=== PATIENT | female | born 1955 | race African-American/Black ===

== ENCOUNTER → 2020-09-15 12:25 | Outpatient (CLI) | payer OTHER, SELFPAY ==
--- NOTE | ~2020-09-15 | DEXA_ITS ---
Bone Density Report Name: Inessa Duque Age: 65 Sex: Female Ethnicity: White Date of : 1955 Indication: postmenopausal; screening for osteoporosis; height loss; Referring Provider: Tonya Rios Study: Bone densitometry was performed. Exam Date: September 15, 2020 Accession number: [id number] Bone Density: Region BMD T-score Z-score Classification AP Spine (L1-L4) 0.834 -1.9 -0.2 Osteopenia Femoral Neck (Left) 0.745 -0.9 0.5 Normal Total Hip (Left) 0.869 -0.6 0.6 Normal Femoral Neck (Right) 0.722 -1.1 0.3 Osteopenia Total Hip (Right) 0.851 -0.7 0.4 Normal Total Hip Mean 0.860 -0.7 0.5 Normal World Health Organization criteria for BMD impression classify patients as: Normal (T-score at or above -1.0), Osteopenia (T-score between -1.0 and -2.5), or Osteoporosis (T-score at or below -2.5). 10-year Fracture Risk(1): Major Osteoporotic Fracture 7.9% Hip Fracture 0.6% Reported Risk Factors: [place] (), Neck BMD=0.722, BMI=28.3 (1) FRAX(R) Version 3.08. Fracture probability calculated for an untreated patient. Fracture probability may be lower if the patient has received treatment. Clinical Information Provided by Patient: Patient maximum height was 64.75 Menopause Age: 56 Drinks caffeinated beverages Onset of menses at age 14 Number of children 2 Impression: The patient has low bone mass, based on the Total Spine T-score. The patient has an estimated ten-year risk of hip fracture of 0.6% and an estimated ten-year risk of major fracture of 7.9%, based on the WHO FRAX algorithm. Discussion: BONE DENSITY IS LOW AT ONE OR MORE SKELETAL SITES. This patient's lowest T-score is low at one or more skeletal sites. It meets the World Health Organization's (WHO) criteria for ?low bone mass? (T-score between -1.0 and -2.5). The patient's 10-year risk of fracture as calculated by FRAX is less than the threshold where pharmacological therapy is recommended by the National Osteoporosis Foundation (NOF). However, all treatment decisions require clinical judgment and consideration of individual patient factors, including patient preferences, comorbidities, previous drug use, risk factors not captured in the FRAX model (e.g., frailty, falls, vitamin D deficiency, increased bone turnover, interval significant decline in bone density) and possible under or overestimation of fracture risk by FRAX. The patient should follow a healthful lifestyle (good nutrition with adequate calcium and vitamin D, and appropriate weight-bearing exercise). Follow-Up: Consider repeating this study in 2 to 3 years to reassess this patient's status, or sooner if there is some new clinical indication. Reported by: TRUONG on 09/15/2020 12:48:00 PM. Rodríguez, jhon
== END ==
PROVIDERS: PCP Family Medicine; Visit Provider Student in an Organized Health Care Education/Training Program
DX: Z78.0 Asymptomatic menopausal state (principal); M85.851 Other specified disorders of bone density and structure, right thigh; M85.88 Other specified disorders of bone density and structure, other site
CPT/HCPCS: 77080

== ENCOUNTER → 2020-10-08 10:20 | Outpatient (CLI) | payer OTHER, SELFPAY ==
--- NOTE | ~2020-10-08 | MR_ITS ---
EXAMINATION: MR lumbar spine wo con DATE: 10/08/2020 10:56 INDICATION: Low back pain. TECHNIQUE: Magnetic resonance imaging (MRI) of the lumbar spine was performed without intravenous con trast. Sequences included sagittal T2-weighted FSE, sagittal T2-weighted FS FSE, sagittal T1-weighted FSE, and axial T2-weighted FSE. COMPARISON: None FINDINGS: There is 7 degrees dextrocurvature of lumbar spine. Vertebral body heights are normal. Ther e is mildly decreased disc height at L4-L5 and severely decreased disc height at L5-S1. The distal sp inal cord signal intensity is normal. The conus medullaris is at L1. The following disc levels are sp ecifically discussed: L1-L2: The disc is bulging. There is no facet joint osteoarthritis. There is no neural foraminal sten osis. There is mild central canal stenosis. L2-L3: There is a right foraminal protrusion. There is moderate bilateral facet joint osteoarthritis. There is mild right neural foraminal stenosis. There is no central canal stenosis. L3-L4: The disc does not extend beyond the endplate margin. There is severe bilateral facet joint ost eoarthritis. There is no neural foraminal stenosis. There is no central canal stenosis. L4-L5: There is a left central extrusion with mass effect on left L5 nerve root in left lateral reces s. There is moderate and severe left facet joint osteoarthritis. There is mild left neural foraminal stenosis. There is moderate central canal stenosis. L5-S1: The disc is bulging. There is moderate right and mild left facet joint osteoarthritis. There i s mild bilateral neural foraminal stenosis. There is mild central canal stenosis. IMPRESSION: 1. Severe lower lumbar spondylosis. Of note, a large extrusion at L4-L5 exerts mass effect on left L5 nerve root. Reviewed, dictated and finalized at location A.
== END ==
PROVIDERS: PCP Family Medicine; Visit Provider Family Medicine
DX: M47.817 Spondylosis without myelopathy or radiculopathy, lumbosacral region (principal); M48.07 Spinal stenosis, lumbosacral region
CPT/HCPCS: 72148

== ENCOUNTER → 2020-11-02 12:32 | Outpatient (CLI) | payer OTHER, SELFPAY ==
--- NOTE | ~2020-11-02 | MM_ITS ---
EXAMINATION: MM screening juanita BI w reena HISTORY: Screening mammogram, family history of breast cancer in her sister. TECHNIQUE: Craniocaudal and mediolateral oblique 3-D tomosynthesis images were obtained and synthetic 2-D images were generated. CAD analysis was submitted and interpreted. COMPARISON: No prior mammogram is available for comparison at this institution. BREAST PARENCHYMAL COMPOSITION: There are scattered areas of fibroglandular density. FINDINGS: Scattered benign-appearing calcifications are present. There is no evidence of suspicious m ass, calcification, or architectural distortion to suggest malignancy in either breast. IMPRESSION: 1. No mammographic evidence of malignancy. 2. Recommend routine screening mammography in one year. BI-RADS Category 2: Benign finding(s). Reviewed, dictated and finalized at location A.
== END ==
PROVIDERS: Visit Provider Student in an Organized Health Care Education/Training Program
DX: Z12.31 Encounter for screening mammogram for malignant neoplasm of breast (principal)
CPT/HCPCS: 77063; 77067

== ENCOUNTER → 2021-02-23 10:45 | Outpatient (CLI) | payer OTHER, SELFPAY ==
--- NOTE | ~2021-02-23 | US_ITS ---
EXAMINATION: US pelvic complete w TV DATE: 02/23/2021 11:13 INDICATION: Postmenopausal bleeding TECHNIQUE: Multiple transabdominal and endovaginal sonographic images of the pelvis were obtained. COMPARISON: None. FINDINGS: The uterus measures 6.8 x 3.2 x 4.5 cm. A 1.5 x 1.6 x 1.4 cm hypoechoic area of the posteri or uterine body has the appearance of a subserosal fibroid. The endometrial complex measures 4 mm. Th e ovaries are not visualized however no adnexal abnormality is seen. There is no free fluid in the pe lvis. IMPRESSION: 1. No sonographic correlate for the patient's symptoms. Reviewed, dictated and finalized at location A.
== END ==
PROVIDERS: Visit Provider Student in an Organized Health Care Education/Training Program
DX: N95.0 Postmenopausal bleeding (principal)
CPT/HCPCS: 76830; 76856

== ENCOUNTER → 2022-01-17 07:20 | Outpatient (CLI) | payer MEDICARE, SELFPAY ==
--- NOTE | ~2022-01-17 | MM_ITS ---
EXAMINATION: MM screening juanita BI w reena HISTORY: Screening mammogram TECHNIQUE: Craniocaudal and mediolateral oblique 3-D tomosynthesis images were obtained and synthetic 2-D images were generated. CAD analysis was submitted and interpreted. COMPARISON: 11/02/2020 bilateral screening mammogram BREAST PARENCHYMAL COMPOSITION: There are scattered areas of fibroglandular density. FINDINGS: Occasional benign calcifications. Stable benign circumscribed opacity in the lower outer le ft breast. There is no evidence of suspicious mass, calcification, or architectural distortion to sug gest malignancy in either breast. There has been no suspicious interval change. IMPRESSION: 1. No mammographic evidence of malignancy. 2. Recommend routine screening mammography in one year. BI-RADS Category 2: Benign finding(s). Reviewed, dictated and finalized at location A.
== END ==
PROVIDERS: PCP Internal Medicine; Visit Provider Student in an Organized Health Care Education/Training Program
DX: Z12.31 Encounter for screening mammogram for malignant neoplasm of breast (principal)
CPT/HCPCS: 77063; 77067

== ENCOUNTER → 2023-03-01 13:26 | Outpatient (CLI) | payer MEDICARE, SELFPAY ==
--- NOTE | ~2023-03-01 | MM_ITS ---
EXAMINATION: MM screening juanita BI w reena HISTORY: Screening mammogram TECHNIQUE: Craniocaudal and mediolateral oblique 3-D tomosynthesis images were obtained and synthetic 2-D images were generated. CAD analysis was submitted and interpreted. COMPARISON: 01/17/2022, 11/02/2020 bilateral screening mammogram examinations BREAST PARENCHYMAL COMPOSITION: There are scattered areas of fibroglandular density. FINDINGS: Occasional bilateral benign calcifications. Stable small circumscribed lower outer quadrant right breast intramammary lymph node at mid depth. Stable circumscribed approximately 6 mm opacity i n the lower central left breast at mid to posterior depth, likely benign intramammary lymph node. The re is no evidence of suspicious mass, calcification, or architectural distortion to suggest malignanc y in either breast. There has been no suspicious interval change. IMPRESSION: 1. Stable benign findings. No mammographic evidence of malignancy. 2. Recommend routine screening mammography in one year. BI-RADS Category 2: Benign finding(s). Reviewed, dictated and finalized at location A.
== END ==
PROVIDERS: PCP Internal Medicine; Visit Provider Student in an Organized Health Care Education/Training Program
DX: Z12.31 Encounter for screening mammogram for malignant neoplasm of breast (principal); D24.2 Benign neoplasm of left breast
CPT/HCPCS: 77063; 77067

== ENCOUNTER → 2023-03-22 12:04 | Outpatient (CLI) | payer MEDICARE, SELFPAY ==
--- NOTE | ~2023-03-22 | DEXA_ITS ---
Bone Density Report Name: SERAFIN MASTERS Age: 67 Sex: Female Ethnicity: Black Date of : 1955 Indication: osteopenia; postmenopausal Referring Provider: DILIP RODRIGUEZ Study: Bone densitometry was performed. Exam Date: March 22, 2023 Accession number: [id number] Bone Density: Region BMD T-score Z-score Classification AP Spine (L1-L4) 0.832 -2.0 -0.8 Osteopenia Femoral Neck (Left) 0.733 -1.0 -0.2 Normal Total Hip (Left) 0.841 -0.8 -0.2 Normal Femoral Neck (Right) 0.694 -1.4 -0.5 Osteopenia Total Hip (Right) 0.792 -1.2 -0.5 Osteopenia Total Hip Mean 0.817 -1.0 -0.4 Normal World Health Organization criteria for BMD impression classify patients as: Normal (T-score at or above -1.0), Osteopenia (T-score between -1.0 and -2.5), or Osteoporosis (T-score at or below -2.5). 10-year Fracture Risk(1): Major Osteoporotic Fracture 4.1% Hip Fracture 0.4% Reported Risk Factors: [place] (Black), Neck BMD=0.694, BMI=25.8 (1) FRAX(R) Version 3.08. Fracture probability calculated for an untreated patient. Fracture probability may be lower if the patient has received treatment. Previous Exams: Region Exam Age BMD T-score BMD Change BMD Change Date g/cm2 vs Baseline vs Previous AP Spine(L1-L4) 03/22/2023 67 0.832 -2.0 -0.002 -0.002 09/15/2020 65 0.834 -1.9 Total Hip(Left) 03/22/2023 67 0.841 -0.8 -0.028* -0.028* 09/15/2020 65 0.869 -0.6 Total Hip(Right) 03/22/2023 67 0.792 -1.2 -0.060* -0.060* 09/15/2020 65 0.851 -0.7 *Denotes significance at 95% confidence level, LSC for AP Spine = 0.022 g/cm2, LSC for Total Hip = 0.027 g/cm2 Clinical Information Provided by Patient: Has used the following medications: Vitamin D, Calcium Patient maximum height was 64.75 Menopause Age: 56 Drinks caffeinated beverages Onset of menses at age 14 Number of children 2 Impression: The patient has low bone mass, based on the Total Spine T-score. The patient has an estimated ten-year risk of hip fracture of 0.4% and an estimated ten-year risk of major fracture of 4.1%, based on the WHO FRAX algorithm. The BMD for the Total Hip(Left) decreased, changing by -0.028 since the last DXA exam. The BMD for the Total Hip(Right) decreased, changing by -0.060 since the last DXA exam. Discussion: BONE DENSITY IS LOW AT ONE OR MORE SKELETAL SITES. This patient's lowest T-score is low at one or more skeletal si
== END ==
PROVIDERS: PCP Internal Medicine; Visit Provider Student in an Organized Health Care Education/Training Program
DX: Z78.0 Asymptomatic menopausal state (principal); M85.89 Other specified disorders of bone density and structure, multiple sites
CPT/HCPCS: 77080

== ENCOUNTER 2024-03-01 07:48 | Outpatient (CLI) | payer MEDICARE, SELFPAY ==
--- NOTE | ~2024-03-01 | MMUS_ITS ---
EXAMINATION: MM diagnostic juanita BI w reena, US breast BI limited HISTORY: Palpable right breast lump TECHNIQUE: Additional 3-D tomosynthesis images of the breasts were performed and synthetic 2-D images were generated. CAD analysis was submitted and interpreted. High resolution limited bilateral breast ultrasound was performed. COMPARISON: Comparison to multiple prior studies sequentially, with oldest reviewed study dated 11/02. BREAST PARENCHYMAL COMPOSITION: Not dense: There are scattered areas of fibroglandular density. FINDINGS: MAMMOGRAPHIC FINDINGS: There are no suspicious masses, calcifications or architectural distortion in the right breast to sug gest malignancy. There is a small mass in the lower central aspect of the left breast, middle third w ith central lucency on spot compression and mediolateral views. ULTRASOUND: Limited right breast ultrasound: In the area of palpable concern in the subcutaneous tissues is an el lipsoid hypoechoic structure measuring 12 x 2 x 12 mm, possibly a sebaceous cyst, likely benign. Left breast: At 5:00, 6 cm from the nipple there is a small intramammary lymph node measuring 8 mm co rresponding to the mass seen on mammography. No sonographic evidence for malignancy in the left breas t. IMPRESSION: 1. Probable benign ellipsoid shaped mass measuring 12 mm in the subcutaneous tissues of the right nyasia ast. This corresponds to the palpable finding. No evidence for malignancy in the left breast. 2. Recommend 6 month follow-up Limited right breast ultrasound. BI-RADS category 3, probably benign findings. Reviewed, dictated and finalized at location B. IMPRESSION: 1. Probable benign ellipsoid shaped mass measuring 12 mm in the subcutaneous ti ssues of the right breast. This corresponds to the palpable finding. No evidenc e for malignancy in the left breast. 2. Recommend 6 month follow-up Limited right breast ultrasound. BI-RADS category 3, probably benign findings.
== END 2024-03-01 07:49 | disposition home or self-care (01) ==
LOC: MICIMG 07:48
PROVIDERS: PCP Internal Medicine; Visit Provider Surgery
DX: N63.15 Unspecified lump in the right breast, overlapping quadrants (principal); R92.8 Other abnormal and inconclusive findings on diagnostic imaging of breast
CPT/HCPCS: 76642; 77062; 77066; G0279

== ENCOUNTER 2024-07-05 08:55 | Emergency (ER) | payer MEDICARE, SELFPAY ==
--- NOTE | 2024-07-05 08:57 | ED.URI ---
HPI - URI/Sore Throat General Chief Complaint: Upper Respiratory Infection Stated Complaint: cough Time Seen by Provider: 07/05/24 08:57 Source: patient Mode of arrival: ambulatory Limitations: no limitations History of Present Illness HPI Narrative: Inessa is a 69-year-old female patient presenting to the clinic today with complaints of cough, sneezing, and nasal congestion x2 days. She reports cough is productive with clear phlegm. Reports a low-grade fever of 99?. Denies any shortness of breath or chest pain. No known sick contacts. MD elicited complaint: cough and nasal congestion Related Data Home Medications ?Medication ?Instructions ?Recorded ?Confirmed ?Last Taken ?Type multivitamin 1 tablet PO DAILY 04/16/20 04/20/21 Unknown History verapamil 180 mg 24 hr 180 mg PO DAILY 04/16/20 04/20/21 Unknown History capsule,extended release calcium carbonate (Calcium 600) 600 mg PO DAILY 03/09/21 04/20/21 Unknown History cholecalciferol (vitamin D3) 50 50 mcg PO DAILY 03/09/21 04/20/21 Unknown History mcg (2,000 unit) capsule Allergies Allergy/AdvReac Type Severity Reaction Status Date / Time Iodine and Iodide Containing Allergy Unknown Unknown Verified 03/21/24 13:00 Produc shellfish derived Allergy Unknown Unknown Verified 03/21/24 13:00 Review of Systems Review of Systems: Pertinent positives per HPI. Patient denies any chills, rash, headache, visual changes, dizziness, sore throat, shortness of breath, chest pain, palpitations, nausea, vomiting, diarrhea, constipation, abdominal pain, or any urinary issues. PMFSH Past Medical History Medical History History of vaginal delivery History of multiple miscarriages Hypertension Surgical History Surgical History H/O colonoscopy with polypectomy History of bunionectomy [place] teeth removed History of dilation and curettage History of colonoscopy Family History Family History Mother Diabetes mellitus TIA (transient ischemic attack) Blood clotting disorder Tuberculosis Grandparent Hypertension Sibling Breast cancer Diabetes mellitus Hypertension Hyperlipidemia Other Breast cancer Diabetes mellitus Father Acute myocardial infarction Hyperlipidemia Social History Social History Smoking status: Never smoker Alcohol intake: current Substance use: never Substance use type: does not use Do You Feel Safe in your Home?: Yes Lack of Transportation: No Lack of Food: Never True Current Housing: I Have Housing Concerned About Future Housing: No Difficulty Paying Gas/Electric Bills: No Difficulty Paying for Meds: No Currently Unemployed: No Education: Master's Degree or Higher Comments At the time of my signature, I reviewed and agree with the nursing past medical, surgical, social, and family history. There is no relevant family history pertinent to the patient complaint. Exam Narrative: General: Well-developed, well nourished, in no apparent distress Head: Normocephalic, atraumatic Eyes: Pupils equally round and reactive to light bilaterally, EOM intact, sclera and conjunctive clear, no discharge, lids normal Ears: TMs intact and clear, ear canals clear, no drainage, grossly hearing normal. Nose: Nares patent, clear nasal discharge, no inflammation, no sinus tenderness. Mouth: Oropharynx without lesions or masses, good dentition, MMM. Neck: Supple, trachea midline, no enlargement of anterior or posterior cervical nodes, no thyroid masses or goiter palpable. Cardio: Regular rate and rhythm, s1 and s2 normal, no murmur appreciated. Resp: Clear to auscultation bilaterally anteriorly and posteriorly, no rhonchi, rales, wheezing or rubs Course Course Emergency Course: Portions of this record may have been created with voice recognition software. Level of Care: Express Care Visit Vital Signs Vital signs: Vital Signs Temperature 37.7 C H 07/05/24 08:59 Pulse Rate 84 07/05/24 08:59 Respiratory Rate 16 07/05/24 08:59 Blood Pressure 160/90 H 07/05/24 08:59 Pulse Oximetry 100 07/05/24 08:59 Temperature 37.7 C H 07/05/24 08:59 Pulse Rate 84 07/05/24 08:59 Respiratory Rate 16 07/05/24 08:59 Blood Pressure 160/90 H 07/05/24 08:59 Pulse Oximetry 100 07/05/24 08:59 Vital signs reviewed MDM - URI/Sore Throat MDM Narrative Medical decision making narrative: At the time of visit patient is resting comfortably on the exam table. Patient appears to be nontoxic. Labs: COVID testing was positive and influenza testing was negative. Plan: Patient has COVID-19. Verapamil will interact with Paxpauld and we are not able to check labs in the clinic. Recommend taking Coricidin HBP for cold/flu symptoms. Go to the ER if you develop CP/SOB. Supportive measures were discussed with the patient and they voiced understanding discharge instructions and agrees to treatment plan. Return precautions reviewed Differential Diagnosis Differential diagnosis: Likely upper respiratory infection, otitis media, sinusitis, viral infection, bronchitis, influenza, pharyngitis and other (COVID) Discharge Plan Discharge Clinical Impression: COVID-19 Patient Disposition: Home, Self-Care Condition: Stable Instructions: Antibiotic Form, How to Recover from COVID-19 at Home (ED) Additional Instructions: COVID testing was positive in the clinic today. Influenza testing was negative May take Coricidin HBP for cold/flu symptoms Increase fluids and stay well hydrated Tylenol/motrin for pain/fever Flonase and OTC antihistamines as directed Vicks vapor rub to open sinuses Sinus rinses for congestion Cepacol spray, cough drops, throat lozenges, warm tea with honey/lemon, gargle salt water to soothe throat BRAT diet for diarrhea Clear liquids x 24 hours then advance as tolerated for nausea/vomiting Go to the ED if you develop a worsening in your condition- high fever not controlled by Tylenol or Motrin, dehydration, weakness, lethargy, shortness of breath, or chest pain. Follow up with your PCP in 3-5 days if symptoms persist. Patient Language: French Prescriptions: No Action calcium carbonate [Calcium 600] 600 mg calcium (1,500 mg) tablet 600 mg PO DAILY cholecalciferol (vitamin D3) 50 mcg (2,000 unit) capsule 50 mcg PO DAILY verapamil 180 mg capsule,ext rel. pellets 24 hr 180 mg PO DAILY multivitamin Tablet 1 tablet PO DAILY estradiol [Yuvafem] 10 mcg tablet 10 mcg vaginal 2XW Qty: 24 1RF Follow-up/Referrals: Delma Mayer MD [Primary Care Provider] - Time of Disposition: 09:10 Quality NIHSS Nursing Documentation ED NIHSS nursing documentation: reviewed/agree
[2024-07-05 08:59] VITALS: BP 160/90; PULSE 84; RESP 16; TEMP 37.7; O2SAT 100
[2024-07-05 09:15] LABS: EDCOVIDSCREEN Positive (Negative); EDINFLUASCREEN Negative (Negative); EDINFLUBSCREEN Negative (Negative)
== END 2024-07-05 09:16 | disposition home or self-care (01) ==
LOC: EXPGOSH 09:22
PROVIDERS: Emergency Provider Nurse Practitioner Family
DX: U07.1 COVID-19 (principal); I10 Essential (primary) hypertension
CPT/HCPCS: 87426; 87804; 99213; G0463

== ENCOUNTER 2024-08-28 09:49 | Outpatient (CLI) | payer MEDICARE, SELFPAY ==
--- NOTE | ~2024-08-28 | US_ITS ---
EXAMINATION TYPE: US breast RT limited COMPARISON: 03/01/2024 REASON FOR STUDY: R92.8 - Other abnormal and inconclusive findings on diagn... TECHNIQUE: Targeted sonographic evaluation of the right breast was performed. INTERPRETATION: At the 3:00 position right breast, 14 cm from the nipple, there is a very subtle/vague 3 mm hypoechoi c structure superficially located at the skin, significant decrease as compared to prior exam. IMPRESSION: 3 mm subtle/vague hypoechoic structure at the skin, significantly decreased in size from prior exam. This is consistent with resolving sebaceous cyst. BI-RADS CATEGORY: BI-RADS 2: Benign Reviewed, dictated and finalized at location M. R PATTERN FOLDER
== END 2024-08-28 09:50 | disposition home or self-care (01) ==
PROVIDERS: Visit Provider Surgery
DX: R92.8 Other abnormal and inconclusive findings on diagnostic imaging of breast (principal)
CPT/HCPCS: 76642

== ENCOUNTER 2024-10-28 15:00 | Outpatient (RCR) | payer MEDICARE, SELFPAY ==
--- NOTE | 2024-09-25 09:49 | OPREHPOC ---
Outpatient Therapy Plan of Care This is a Multidisciplinary Plan of Care that may contain components documented by all disciplines (PT, OT, and ST.) PT Problem 1 PT Problem #1 Knowledge Deficit PT Goal 1 Goal / Goal Update 1. Patient will perform independent HEP 2. Patient will verbalize urge suppression strategies Target Visit 2 PT Problem 2 PT Problem #2 Pain PT Goal 1 Goal / Goal Update 1. Patient will report pelvic pain no higher than 1/10 with all activities including intercourse in order to allow for full function and medical management as needed (pelvic ultrasound, medication administration, etc) Target Visit 4 PT Problem 3 PT Problem #3 Impaired Strength PT Goal 1 Goal / Goal Update 1. Improve hip abduction strength to 4+/5 lainey 2. Improve hip extension strength to 5/5 lainey Target Visit 4 PT Problem 4 PT Problem #4 Impaired Functional ADLs PT Goal 1 Goal / Goal Update 1. Patient will report no urge incontinence for at least 2 weeks Target Visit 4
--- NOTE | 2024-09-25 09:49 | PTOPEVAL1 ---
Assessment and note entered by Loren Hensley DPT Evaluation Information Assessment Status Evaluation Diagnosis n94.10 ICD-10 Condition Codes (PT) Weakness R53.1,Pelvic and perineal pain R10.2,Urge incontinence N39.41 Subjective Information Pt reports pelvic pain and pain with intercourse that started 5 years ago and is worsening. Highest pain 5/10 recently and lowest 0/10. Voids less than 10 times a day and wakes up 1 time at night. Can hold urge to void up to 30 minutes. Denies pain with urination. Does get some urge incontinence at times while on the way to the bathroom, 1-2 times a week. Volume of incontinence is small but has had to change clothes at times. BM most days, no pain or incontinence. Pt has been 4 times, delivered 2 times vaginally and had episiotomy with the first. No other [employer] or b/ b history. Patient goal: get rid of the pain Return to MD not currently scheduled. Reported Pain Level Pain Score 0: Self Report Assessment PT Clinical Summary The patient is presenting to skilled therapy with a several year history of pelvic pain. She presents with increased pelvic floor muscle tone and some difficulty relaxing after contraction, as well as decreased abdominal and hip strength. These impairments are contributing to her pelvic pain. She will benefit from therapy to address pain and return to full function. She also reports intermittent urge incontinence and will benefit from therapy to address the incontinence and educate in urge suppression techniques. Plan of Care Interventions Electrical Stimulation,Hot Pack/Cold Pack,Manual Therapy,Neuro Re-education,Patient/Caregiver Education,Therapeutic Activities,Therapeutic Exercise PT Services Indicated Yes Treatment Frequency and 1 time a week for 4 visits Duration These treatments will address the objective and functional deficits as defined above. The patient will be advanced safely and appropriately in order for the patient to progress towards his/her prior level of function. Additional exercises will be introduced and as well as a comprehensive home exercise program upon discharge, if needed, to ensure carryover of functional gains achieved in the clinic. This treatment plan has been reviewed and agreement upon by the patient.
--- NOTE | 2024-10-08 09:07 | PCPTNOTE ---
Patient called to cancel appointment 10/08/24 due to schedule conflict.
--- NOTE | 2024-10-14 15:05 | OPREHPOC ---
Outpatient Therapy Plan of Care This is a Multidisciplinary Plan of Care that may contain components documented by all disciplines (PT, OT, and ST.) PT Problem 1 PT Problem #1 Knowledge Deficit PT Goal 1 Goal / Goal Update 1. Patient will perform independent HEP 2. Patient will verbalize urge suppression strategies Target Visit 2 Progress Met PT Problem 2 PT Problem #2 Pain PT Goal 1 Goal / Goal Update 1. Patient will report pelvic pain no higher than 1/10 with all activities including intercourse in order to allow for full function and medical management as needed (pelvic ultrasound, medication administration, etc) Target Visit 5 Progress Not Met PT Problem 3 PT Problem #3 Impaired Strength PT Goal 1 Goal / Goal Update 1. Improve hip abduction strength to 4+/5 lainey 2. Improve hip extension strength to 5/5 lainey Target Visit 4 Progress Met PT Problem 4 PT Problem #4 Impaired Functional ADLs PT Goal 1 Goal / Goal Update 1. Patient will report no urge incontinence for at least 2 weeks update 10/14/24 1. 1 time in last week Target Visit 5 Progress Partially Met
--- NOTE | 2024-10-14 15:05 | PTOPPROG ---
Assessment and note entered by Loren Hensley DPT Evaluation Information Assessment Status Progress Diagnosis n94.10 ICD-10 Condition Codes (PT) Weakness R53.1,Pelvic and perineal pain R10.2,Urge incontinence N39.41 Subjective Information Pt has not yet been able to tell if therapy is helping pelvic pain, has not attempted intercourse due to having family in town. Does not report other pain recently. Has recently been instructed to use lubricant regularly. One instance of urge incontinence in the last week. Has been trying to use urge suppression techniques. Assessment PT Clinical Summary The patient has made some progress in therapy. She reports decreased urge incontinence in the last week and has been using urge suppression strategies. She reports no pelvic pain recently but has not attempted intercourse. She does demonstrate improved pelvic floor muscle mobility and improved hip and abdominal strength. Due to her progress, plan to continue therapy to further address pain and incontinence to restore full function. Plan of Care Interventions Electrical Stimulation,Hot Pack/Cold Pack,Manual Therapy,Neuro Re-education,Patient/Caregiver Education,Therapeutic Activities,Therapeutic Exercise PT Services Indicated Yes Treatment Frequency and 1 visit every other week x 2 visits Duration These treatments will address the objective and functional deficits as defined above. The patient will be advanced safely and appropriately in order for the patient to progress towards his/her prior level of function. Additional exercises will be introduced and as well as a comprehensive home exercise program upon discharge, if needed, to ensure carryover of functional gains achieved in the clinic. This treatment plan has been reviewed and agreement upon by the patient.
--- NOTE | 2024-11-11 11:58 | PTOPDC ---
Assessment and note entered by Loren Hensley DPT Evaluation Information Assessment Status Discharge - Pt Not Present Diagnosis n94.10 ICD-10 Condition Codes (PT) Weakness R53.1,Pelvic and perineal pain R10.2,Urge incontinence N39.41 Subjective Information - Assessment PT Clinical Summary Patient has self discharged at this time- states she is doing well. Plan of Care PT Services Indicated No
== END 2024-11-11 13:43 | disposition home or self-care (01) ==
LOC: ANHGOSHPT 15:00
PROVIDERS: Visit Provider Obstetrics & Gynecology
DX: N94.10 Unspecified dyspareunia (principal)
CPT/HCPCS: 97110; 97112; 97140; 97161; 97530